=== PATIENT | male | born 1930 | race American Indian/Alaskan Native ===

== ENCOUNTER 2018-05-07 20:41 | Inpatient (IN) | payer OTHER ==
[2018-05-07 22:01] LABS: Absolute Lymphocytes (CBC) 0.1 K/uL (0.7-4.9); Absolute Monocytes 0.3 K/uL (0.1-1.3); Absolute Neutrophil 3.5 K/uL (1.8-8.0); Basophils % 0.1 % (0-1.3); Hematocrit 38.6 % (39.6-49.0); Lymphocytes % 2.7 % (15.3-44.8); MCH 31.4 pg (27.0-35.0); MCV 91.8 fL (80-100); MPV 7.8 fL (7.6-11.3); Monocytes % 8.6 % (3.3-12.3)
[2018-05-07] MEDS ORDERED: FAMOTIDINE 20 MG/2 ML VIAL IV ONE (22:08)
[2018-05-07] MEDS ORDERED: ACETAMINOPHEN 325 MG TABLET ONE (22:08)
[2018-05-07 22:15] LABS: Protime INR 1.15
[2018-05-07 22:29] LABS: ALT/SGPT 18 U/L (12-78); AST/SGOT 16 U/L (15-37); Albumin 3.3 g/dL (3.4-5.0); Alkaline Phosphatase 70 U/L (45-117); BUN Blood Urea Nitrogen 20 mg/dL (7-18); Bicarbonate 24 mmol/L (21-32); Bilirubin Direct 0.2 mg/dL (0-0.2); Bilirubin Total 0.6 mg/dL (0.2-1.0); Glucose Level 174 mg/dL (74-106); Lipase 153 U/L (73-393); Magnesium 1.8 mg/dL (1.8-2.4); NT PRO-BNP 126 pg/mL (<450); Sodium Level 136 mmol/L (136-145); Troponin (Emerg Dept Use Only) < 0.02 ng/mL (0.0-0.045)
[2018-05-07] MEDS ORDERED: METRONIDAZOLE 500mg IVPB 500 MG/100 ML BAG IV ONE (22:31)
[2018-05-07] MEDS ORDERED: CEFTRIAXONE/SWI 1gm 1 GM/10 ML SYR ONE (22:31)
[2018-05-07] MEDS ORDERED: NA CHLORIDE 0.9% 500 ML ONE (22:42)
--- NOTE | 2018-05-07 22:58 | EDPHYS ---
Physician Documentation [facility] Name: Gerard Rivas Age: 87 yrs Sex: Male : 1930 Arrival Date: 05/07/2018 Time: 20:50 Bed 18 Private MD: J Luis Mahmood ED Physician Lauri Castro HPI: 05/07 21:08 This 87 yrs old Other Male presents to ER via EMS with complaints of Fever. yousuf 21:08 The patient reports fever, that was measured at 100 degrees Fahrenheit. Onset: The yousuf symptoms/episode began/occurred 3 day(s) ago. Modifying factors: there are no obvious modifying factors. Associated signs and symptoms: Pertinent positives:. Severity of symptoms: At their worst the symptoms were. The patient has not experienced similar symptoms in the past. Historical: - Allergies: 21:04 Levaquin; fc - Home Meds: 21:04 metformin 500 mg Oral Tb24 1 tab 2 times per day [Active]; fc - PMHx: 21:04 Diabetes - NIDDM; High Cholesterol; fc - PSHx: 21:04 Appendectomy; TURP; fc - Immunization history:: Last tetanus immunization: unknown, Pneumococcal vaccine is up to date, Flu vaccine is up to date. - Social history:: Smoking status: Patient/guardian denies using tobacco, Patient/guardian denies using alcohol, street drugs. - Ebola Screening: : Patient negative for fever greater than or equal to 101.5 degrees Fahrenheit, and additional compatible Ebola Virus Disease symptoms Patient denies exposure to infectious person Patient denies travel to an Ebola-affected area in the 21 days before illness onset. - Family history:: not pertinent. ROS: 21:08 Eyes: Negative for injury, pain, redness, and discharge, ENT: Negative for injury, yousuf pain, and discharge, Neck: Negative for injury, pain, and swelling, Cardiovascular: Negative for chest pain, palpitations, and edema, Respiratory: Negative for shortness of breath, cough, wheezing, and pleuritic chest pain, Back: Negative for injury and pain, : Negative for injury, bleeding, discharge, and swelling, MS/Extremity: Negative for injury and deformity, Skin: Negative for injury, rash, and discoloration, Neuro: Negative for headache, weakness, numbness, tingling, and seizure, Psych: Negative for depression, anxiety, suicide ideation, homicidal ideation, and hallucinations, Allergy/Immunology: Negative for hives, rash, and allergies, Endocrine: Negative for neck swelling, polydipsia, polyuria, polyphagia, and marked weight changes, Hematologic/Lymphatic: Negative for swollen nodes, abnormal bleeding, and unusual bruising. 21:08 Constitutional: Positive for body aches, fever, malaise, poor PO intake. 21:08 Abdomen/GI: Positive for abdominal pain, abdominal cramps, abdominal distension, of the right lower quadrant and left lower quadrant. Exam: 21:08 Head/Face: Normocephalic, atraumatic. Eyes: Pupils equal round and reactive to light, yousuf extra-ocular motions intact. Lids and lashes normal. Conjunctiva and sclera are non-icteric and not injected. Cornea within normal limits. Periorbital areas with no swelling, redness, or edema. ENT: Nares patent. No nasal discharge, no septal abnormalities noted. Tympanic membranes are normal and external auditory canals are clear. Oropharynx with no redness, swelling, or masses, exudates, or evidence of obstruction, uvula midline. Mucous membranes moist. Neck: Trachea midline, no thyromegaly or masses palpated, and no cervical lymphadenopathy. Supple, full range of motion without nuchal rigidity, or vertebral point tenderness. No Meningismus. Chest/axilla: Normal chest wall appearance and motion. Nontender with no deformity. No lesions are appreciated. Cardiovascular: Regular rate and rhythm with a normal S1 and S2. No gallops, murmurs, or rubs. Normal PMI, no JVD. No pulse deficits. Respiratory: Lungs have equal breath sounds bilaterally, clear to auscultation and percussion. No rales, rhonchi or wheezes noted. No increased work of breathing, no retractions or nasal flaring. Back: No spinal tenderness. No costovertebral tenderness. Full range of motion. Male : Normal genitalia with no discharge or lesions. Skin: Warm, dry with normal turgor. Normal color with no rashes, no lesions, and no evidence of cellulitis. MS/ Extremity: Pulses equal, no cyanosis. Neurovascular intact. Full, normal range of motion. Neuro: Awake and alert, GCS 15, oriented to person, place, time, and situation. Cranial nerves II-XII grossly intact. Motor strength 5/5 in all extremities. Sensory grossly intact. Cerebellar exam normal. Normal gait. Psych: Awake, alert, with orientation to person, place and time. Behavior, mood, and affect are within normal limits. 21:08 Constitutional: The patient appears febrile. 21:08 Abdomen/GI: Inspection: abdomen appears normal, Bowel sounds: normal, Palpation: mild abdominal tenderness, moderate abdominal tenderness, in the right lower quadrant and left lower quadrant, Liver: no appreciated palpable abnormalities, Hernia: not appreciated. Vital Signs: 20:45 BP 87 / 58; Pulse 118; Resp 20; Temp 99.5(O); Pulse Ox 94% on R/A; Weight 72.57 kg (R); fc Height 5 ft. 8 in. (172.72 cm) (R); Pain 4/10; 22:09 BP 100 / 68; Pulse 100; Resp 16; Pulse Ox 95% on R/A; jb4 22:45 BP 78 / 58; Pulse 87; Resp 16; Temp 99.1(O); Pulse Ox 95% on R/A; jb4 23:55 BP 81 / 54; Pulse 89; Resp 16; Pulse Ox 96% on R/A; jb4 05/08 00:15 BP 93 / 57; Pulse 85; Resp 18; Pulse Ox 100% on R/A; jb4 05/07 20:45 Body Mass Index 24.33 (72.57 kg, 172.72 cm) fc MDM: 05/07 20:54 Patient medically screened. [facility] 21:10 Data reviewed: vital signs, nurses notes, lab test result(s), EKG, radiologic studies, [facility] CT scan, plain films. 05/07 21:07 Order name: Basic Metabolic Panel; Complete Time: 22:32 [facility] 05/07 21:07 Order name: CBC with Diff [facility] 05/07 21:07 Order name: LFT's; Complete Time: 22:32 [facility] 05/07 21:07 Order name: Magnesium; Complete Time: 22:32 [facility] 05/07 21:07 Order name: NT PRO-BNP; Complete Time: 22:32 [facility] 05/07 21:07 Order name: PT-INR; Complete Time: 22:32 [facility] 05/07 21:07 Order name: Troponin (emerg Dept Use Only); Complete Time: 22:32 [facility] 05/07 21:07 Order name: Lipase; Complete Time: 22:32 [facility] 05/07 21:07 Order name: Blood Culture Adult (2) [facility] 05/07 21:07 Order name: Urine Culture [facility] 05/07 21:07 Order name: Procalcitonin; Complete Time: 22:52 [facility] 05/07 21:07 Order name: Lactate; Complete Time: 22:32 [facility] 05/07 23:05 Order name: Basic Metabolic Panel [facility] 05/07 23:05 Order name: Basic Metabolic Panel [facility] 05/07 21:07 Order name: XRAY Chest (1 view) [facility] 05/07 21:11 Order name: CT Abd/Pelvis - W/Contrast [facility] 05/07 23:05 Order name: CBC with Automated Diff [facility] 05/07 23:05 Order name: CBC with Automated Diff [facility] 05/07 23:05 Order name: Lipase [facility] 05/07 23:05 Order name: Lipase [facility] 05/07 23:05 Order name: Liver (Hepatic) Function [facility] 05/07 23:05 Order name: Liver (Hepatic) Function [facility] 05/07 23:39 Order name: CBC Smear Scan [facility] 05/08 00:27 Order name: Urine Dipstick--Ancillary (enter results) [facility] 05/08 00:32 Order name: Urine Dipstick-Ancillary [facility] 05/07 21:07 Order name: EKG; Complete Time: 21:08 [facility] 05/07 21:07 Order name: Cardiac monitoring; Complete Time: 21:50 [facility] 05/07 21:07 Order name: EKG - Nurse/Tech; Complete Time: 21:50 [facility] 05/07 21:07 Order name: IV Saline Lock; Complete Time: 21:50 [facility] 05/07 21:07 Order name: Labs collected and sent; Complete Time: 21:50 [facility] 05/07 21:07 Order name: O2 Per Protocol; Complete Time: 21:50 [facility] 05/07 21:07 Order name: O2 Sat Monitoring; Complete Time: 21:50 [facility] 05/07 21:07 Order name: Urine Dipstick-Ancillary (obtain specimen); Complete Time: 00:27 [facility] 05/07 22:55 Order name: Coffman: annaus lido; Complete Time: 00:27 [facility] 05/07 22:55 Order name: IV Saline Lock - Large Bore; Complete Time: 23:29 [facility] 05/07 23:05 Order name: NPO EDMS Administered Medications: 21:10 Drug: NS 0.9% 1000 ml Route: IV; Rate: 1 bolus; Site: left hand; [facility] 21:50 Follow up: Response: No adverse reaction; IV Status: Completed infusion [facility] 22:08 Drug: Pepcid 20 mg Route: IVP; Site: left hand; [facility] 22:42 Follow up: Response: No adverse reaction [facility] 22:08 Drug: Tylenol 650 mg Route: PO; [facility] 22:43 Follow up: Response: No adverse reaction; Temperature is decreased [facility] 22:36 Drug: Rocephin - (cefTRIAXone) 1 grams Route: IVPB; Infused Over: 30 mins; Site: left [address]; 22:38 Follow up: Response: No adverse reaction; IV Status: Completed infusion; given IVP per [facility] pharmacy protocol 22:38 Drug: Flagyl 500 mg Volume: 100 ml; Route: IVPB; Rate: 200 ml/hr; Infused Over: 30 [facility] mins; Site: left hand; 23:03 Follow up: Response: No adverse reaction; IV Status: Completed infusion [facility] 22:40 Drug: NS 0.9% 500 ml Route: IV; Rate: bolus; Site: left hand; [facility] 23:10 Follow up: Response: No adverse reaction; IV Status: Completed infusion [facility] 23:15 Drug: NS 0.9% 1000 ml Route: IV; Rate: 1 bolus; Site: left hand; [facility] 05/08 00:50 Follow up: Response: No adverse reaction; IV Status: Infusion continued upon admission [facility] 05/07 23:15 Drug: vancoMYCIN 1 grams Route: IVPB; Infused Over: 2 hrs; Site: left hand; [facility] 05/08 00:50 Follow up: Response: No adverse reaction; IV Status: Infusion continued upon admission [facility] Disposition: 05/07/18 22:57 Hospitalization ordered by J Luis Mahmood for Inpatient Admission. Preliminary diagnosis are Fever, unspecified, Abdominal tenderness, Unspecified kidney failure, Hypotension, Dehydration. - Bed requested for Intensive Care Unit. - Status is Inpatient Admission. cc3 - Condition is Fair. - Problem is new. - Symptoms have improved. UTI on Admission? No Signatures: Dispatcher [employer] Shari Hernandes RN RN kl Anderson, Corey, MD MD [facility] Ligia, RN RN Theron Lehman RN RN jb4 Josy Rainey cc3 Corrections: (The following items were deleted from the chart) 05/07 22:58 22:57 Hospitalization Ordered by J Luis Mahmood MD for Inpatient Admission. Preliminary [facility] diagnosis is Fever, unspecified; Abdominal tenderness; Unspecified kidney failure. Bed requested for Intensive Care Unit. Status is Inpatient Admission. Condition is Fair. Problem is new. Symptoms have improved. UTI on Admission? No. [facility] 05/08 00:01 05/07 22:58 05/07/2018 22:57 Hospitalization Ordered by J Luis Mahmood MD for Inpatient kl Admission. Preliminary diagnosis is Fever, unspecified; Abdominal tenderness; Unspecified kidney failure; Hypotension; Dehydration. Bed requested for Intensive Care Unit. Status is Inpatient Admission. Condition is Fair. Problem is new. Symptoms have improved. UTI on Admission? No. [facility] 05/08 01:02 00:01 05/07/2018 22:57 Hospitalization Ordered by J Luis Mahmood MD for Inpatient cc3 Admission. Preliminary diagnosis is Fever, unspecified; Abdominal tenderness; Unspecified kidney failure; Hypotension; Dehydration. Bed requested for Intensive Care Unit. Status is Inpatient Admission. Condition is Fair. Problem is new. Symptoms have improved. UTI on Admission? No.
--- NOTE | 2018-05-07 22:58 | ER ---
Nurse's Notes [facility] Name: Gerard Rivas Age: 87 yrs Sex: Male : 1930 Arrival Date: 05/07/2018 Time: 20:50 Bed 18 Private MD: J Luis Mahmood Diagnosis: Fever, unspecified;Abdominal tenderness;Unspecified kidney failure;Hypotension;Dehydration Presentation: 05/07 20:45 Presenting complaint: EMS states: that pt was dx with diverticulitis by Dr Mahmood yesterday and given Cipro and Flagyl. Pt took them today and then 1 hr later started to having shakes, fever of 104 and nausea. Denies any vomiting or diarrhea. Family states that this pt did this the last time he was given Levaquin. Transition of care: patient was not received from another setting of care. Onset of symptoms was May 07, 2018. Risk Assessment: Do you want to hurt yourself or someone else? Patient reports no desire to harm self or others. Initial Sepsis Screen: Does the patient meet any 2 criteria? Systolic BP < 90 mmHg. HR > 90 bpm. Yes Does the patient have a suspected source of infection? No. Patient's initial sepsis screen is negative. Care prior to arrival: Medication(s) given: Motrin, 400 mg, per family at 1915 Normal saline infusion, 250 ml Tylenol, per family 500 mg given at 1845 IV initiated. 20 GA, in the left hand, HR 120 and temp of 101 and bp of 105/40 with sats of 95% on roomair. 20:45 Method Of Arrival: EMS: [facility] 20:45 Acuity: BEN 3 fc Historical: - Allergies: 21:04 Levaquin; fc - Home Meds: 21:04 metformin 500 mg Oral Tb24 1 tab 2 times per day [Active]; fc - PMHx: 21:04 Diabetes - NIDDM; High Cholesterol; fc - PSHx: 21:04 Appendectomy; TURP; fc - Immunization history:: Last tetanus immunization: unknown, Pneumococcal vaccine is up to date, Flu vaccine is up to date. - Social history:: Smoking status: Patient/guardian denies using tobacco, Patient/guardian denies using alcohol, street drugs. - Ebola Screening: : Patient negative for fever greater than or equal to 101.5 degrees Fahrenheit, and additional compatible Ebola Virus Disease symptoms Patient denies exposure to infectious person Patient denies travel to an Ebola-affected area in the 21 days before illness onset. - Family history:: not pertinent. Screenin:00 Abuse screen: Denies threats or abuse. Nutritional screening: No deficits noted. jb4 Tuberculosis screening: No symptoms or risk factors identified. Fall Risk Gait- Weak (10 pts.). Total Maxwell Fall Scale indicates No Risk (0-24 pts). Assessment: 21:00 General: Appears in no apparent distress. comfortable, Behavior is calm, cooperative, jb4 appropriate for age. Pain: Complains of pain in abdomen Pain does not radiate. Pain currently is 0 out of 10 on a pain scale. at worst was 10 out of 10 on a pain scale. Quality of pain is described as pressure. Neuro: Level of Consciousness is awake, alert, obeys commands, Oriented to person, place, time, situation. Cardiovascular: Heart tones S1 S2 present Patient's skin is warm and dry. Respiratory: Airway is patent Respiratory effort is even, unlabored, Respiratory pattern is regular, symmetrical, Breath sounds are clear bilaterally. GI: Abdomen is flat, non-distended, Bowel sounds present X 4 quads. Abd is soft and non tender X 4 quads. : No signs and/or symptoms were reported regarding the genitourinary system. EENT: No signs and/or symptoms were reported regarding the EENT system. Derm: Skin is intact, Skin is pink, warm \T\ dry. Musculoskeletal: Circulation, motion, and sensation intact. 22:09 Reassessment: Patient appears in no apparent distress at this time. Patient and/or jb4 family updated on plan of care and expected duration. Pain level reassessed. Patient is alert, oriented x 3, equal unlabored respirations, skin warm/dry/pink. 23:00 Reassessment: Patient appears in no apparent distress at this time. Patient and/or jb4 family updated on plan of care and expected duration. Pain level reassessed. Patient is alert, oriented x 3, equal unlabored respirations, skin warm/dry/pink. 05/08 00:26 Reassessment: Patient appears in no apparent distress at this time. Patient and/or jb4 family updated on plan of care and expected duration. Pain level reassessed. Patient is alert, oriented x 3, equal unlabored respirations, skin warm/dry/pink. Vital Signs: 05/07 20:45 BP 87 / 58; Pulse 118; Resp 20; Temp 99.5(O); Pulse Ox 94% on R/A; Weight 72.57 kg (R); fc Height 5 ft. 8 in. (172.72 cm) (R); Pain 4/10; 22:09 BP 100 / 68; Pulse 100; Resp 16; Pulse Ox 95% on R/A; jb4 22:45 BP 78 / 58; Pulse 87; Resp 16; Temp 99.1(O); Pulse Ox 95% on R/A; jb4 23:55 BP 81 / 54; Pulse 89; Resp 16; Pulse Ox 96% on R/A; jb4 05/08 00:15 BP 93 / 57; Pulse 85; Resp 18; Pulse Ox 100% on R/A; jb4 05/07 20:45 Body Mass Index 24.33 (72.57 kg, 172.72 cm) ED Course: 05/07 20:45 Arm band placed on Patient placed in an exam room, on a stretcher. fc 20:50 Patient arrived in ED. am2 20:50 J Luis Mahmood MD is Private Physician. am2 20:54 Lauri Castro MD is Attending Physician. yousuf 20:59 Theron Lehman, CYNTHIA is Primary Nurse. jb4 21:00 Patient has correct armband on for positive identification. Bed in low position. Call jb4 light in reach. Side rails up X 1. Pulse ox on. NIBP on. 21:02 Triage completed. fc 21:03 Maintain EMS IV. Dressing intact. Good blood return noted. Site clean \T\ dry. Gauge \T\ fc site: 20 gauge to left hand. 21:28 Oral contrast given. vm2 21:34 XRAY Chest (1 view) In Process Unspecified. EDMS 21:50 Oral contrast reported to be complete. vm2 22:56 J Luis Mahmood MD is Hospitalizing Provider. yousuf 23:28 Inserted saline lock: 20 gauge in left antecubital area, using aseptic technique. ds4 Missed attempt(s): 20 gauge in right antecubital area. Bleeding controlled, band aid applied, catheter tip intact. 23:[address] via wheelchair. kw1 23:45 CT Abd/Pelvis - W/Contrast In Process Unspecified. EDMS 23:47 CT completed. Patient tolerated procedure well. Patient moved back from CT. kw1 05/08 00:50 No provider procedures requiring assistance completed. Patient admitted, IV remains in jb4 place. Administered Medications: 05/07 21:10 Drug: NS 0.9% 1000 ml Route: IV; Rate: 1 bolus; Site: left hand; 4 21:50 Follow up: Response: No adverse reaction; IV Status: Completed infusion jb4 22:08 Drug: Pepcid 20 mg Route: IVP; Site: left hand; jb4 22:42 Follow up: Response: No adverse reaction jb4 22:08 Drug: Tylenol 650 mg Route: PO; jb4 22:43 Follow up: Response: No adverse reaction; Temperature is decreased 4 22:36 Drug: Rocephin - (cefTRIAXone) 1 grams Route: IVPB; Infused Over: 30 mins; Site: left [facility] hand; 22:38 Follow up: Response: No adverse reaction; IV Status: Completed infusion; given IVP per [facility] pharmacy protocol 22:38 Drug: Flagyl 500 mg Volume: 100 ml; Route: IVPB; Rate: 200 ml/hr; Infused Over: 30 jb4 mins; Site: left hand; 23:03 Follow up: Response: No adverse reaction; IV Status: Completed infusion [facility] 22:40 Drug: NS 0.9% 500 ml Route: IV; Rate: bolus; Site: left hand; jb4 23:10 Follow up: Response: No adverse reaction; IV Status: Completed infusion [facility] 23:15 Drug: NS 0.9% 1000 ml Route: IV; Rate: 1 bolus; Site: left hand; jb4 05/08 00:50 Follow up: Response: No adverse reaction; IV Status: Infusion continued upon admission [facility] 05/07 23:15 Drug: vancoMYCIN 1 grams Route: IVPB; Infused Over: 2 hrs; Site: left hand; [facility] 05/08 00:50 Follow up: Response: No adverse reaction; IV Status: Infusion continued upon admission [facility] Intake: Outcome: 05/07 22:57 Decision to Hospitalize by Provider. [facility] 05/08 00:50 Admitted to ICU accompanied by nurse, family with patient, via stretcher, room 6, on [facility] monitor, with chart, Report called to CYNTHIA Burnham Condition: stable Discharge instructions given to patient, family, Instructed on the need for admit, Demonstrated understanding of instructions. 01:02 Patient left the ED. cc3 Signatures: Dispatcher [employer] Lauri Leal MD MD cha Chretien, Felicia, RN RN fc Conner Serrano ds4 Theron Lehman RN RN jb4 Sravanthi Preston 2 Maxine Sommer 2 Shari Moreno 1 Josy Rainey cc3
[2018-05-07] MEDS ORDERED: ACETAMINOPHEN 500 MG TAB PO PRN (23:00)
[2018-05-07] MEDS ORDERED: ONDANSETRON 4 MG/2 ML VIAL IV PRN (23:00)
[2018-05-07] MEDS ORDERED: VANCOMYCIN 1 GM/250 ML BAG ONE (23:09)
[2018-05-07] MEDS ORDERED: NA CHLORIDE 0.9% 1,000 ML ONE (23:09)
[2018-05-07] MEDS ORDERED: LIDOCAINE VISCOUS 2% SOLN 15 ML UDC ONE (23:34)
[2018-05-07 23:39] LABS: Blood Morphology Comment NOT SEEN (NOT SEEN); Platelet Estimate ADEQ; Urine White Blood Cell Casts OK
[2018-05-08 00:31] LABS: Urine Blood TRACE (NEG); Urine Glucose NEGATIVE (NEG); Urine Protein NEGATIVE (NEG); Urine pH 5.5 (5.0-7.0)
[2018-05-08] MEDS: NA CHLORIDE 0.9% 1,000 ML IV SCH ×3 (01:11→14:58)
[2018-05-08 04:50] LABS: Absolute Lymphocytes (CBC) 0.2 K/uL (0.7-4.9); Absolute Monocytes 0.2 K/uL (0.1-1.3); Basophils % 0.3 % (0-1.3); Eosinophils % 0.2 % (0-4.4); Lymphocytes % 9.5 % (15.3-44.8); MCH 31.6 pg (27.0-35.0); MCV 91.8 fL (80-100); MPV 7.7 fL (7.6-11.3); Monocytes % 9.7 % (3.3-12.3)
[2018-05-08 05:00] LABS: Albumin 2.8 g/dL (3.4-5.0); Bilirubin Direct 0.2 mg/dL (0-0.2); Bilirubin Total 0.5 mg/dL (0.2-1.0); Potassium 4.4 mmol/L (3.5-5.1); Protein, Total 5.2 g/dL (6.4-8.2)
[2018-05-08] MEDS: METRONIDAZOLE 500mg IVPB 500 MG/100 ML BAG IV SCH ×3 (05:16→17:09)
--- NOTE | 2018-05-08 06:38 | RAD REPORT ---
EXAM DESCRIPTION: CT - Abdomen Pelvis W Contrast - 05/08/2018 4:11 am CLINICAL HISTORY: Abdominal pain, recent diverticulitis diagnosis A preliminary report was provided at the time of the study and reviewed prior to final report. COMPARISON: CT imaging September 2015 TECHNIQUE: Biphasic, helical CT imaging of the abdomen and pelvis was performed following 100 ml non -ionic IV contrast. Oral contrast was given. All CT scans are performed using dose optimization technique as appropriate and may include automated exposure control or mA/KV adjustment according to patient size. FINDINGS: No suspicious findings in the lung bases. Minimal hiatal hernia is present. No pericardial effusion. The liver, spleen, and pancreas show no focal findings. Liver shows a mild diffuse fatty infiltration pattern. Gallbladder and biliary tree show no suspicious findings. Symmetric renal function is seen with no hydronephrosis or suspicious renal mass. No pyelonephritis o r acute renal parenchymal process. Renal cysts are present largest cyst is in the medial mid right ki dney 2.9 cm in size. This has increased from 2.5 cm in 2016. No adrenal abnormality. No urinary bladd er abnormality seen. Prostate gland and seminal vesicles show no suspicious findings. No gastric dilatation or wall thickening. No dilated small bowel loops. Patient has a prominent sigmo id diverticulosis pattern but no wall thickening or inflammatory stranding. No measurable colitis or diverticulitis findings. There is minimal congestion in the mesenteric fat and a few small mesenteric lymph nodes. No free air, pneumatosis or focal inflammatory stranding. Small fat filled left inguinal hernia is present. No bulky lymphadenopathy or omental thickening. Bony degenerative changes are present. No pathologic bone process seen. 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 Patient has an infrarenal abdominal aortic aneurysm 4.6 cm AP x 4.1 cm TR. This has increased by 2 mm in each dimension from 2016. No acute aortic component. IMPRESSION: Extensive diverticulosis without diverticulitis or other acute colon finding. Minimal mesenteric congestion and small mesenteric lymph nodes. These are nonspecific but could indic ate a mild enteritis. Abdominal aortic aneurysm enlarged minimally from 2016. No acute component. Fatty infiltration of the liver.
[2018-05-08] MEDS: CEFTRIAXONE/SWI 1gm 1 GM/10 ML SYR IV SCH ×2 (08:18→20:07)
--- NOTE | 2018-05-08 08:29 | RAD REPORT ---
EXAM DESCRIPTION: RAD - Chest Single View - 05/07/2018 9:34 pm CLINICAL HISTORY: Abdominal pain, abdominal distention COMPARISON: March 2017 TECHNIQUE: AP portable chest image was obtained 2131 hours . FINDINGS: No focal consolidation or mass. Vasculature and interstitial markings are prominent. Patte rn is not substantially different when adjusting for AP versus PA technique. Trachea is midline. Hear t size is normal. No measurable pleural effusion and no pneumothorax. No acute bony abnormality seen. No acute aortic findings suspected. IMPRESSION: No focal mass or consolidation. Vasculature and lung markings are prominent without cardiomegaly. Mild failure/ volume overload is suspected and needs correlation with clinical presentation.
[2018-05-08] MEDS ORDERED: CEFTRIAXONE 1 GM/NS 50 ML 1 GM/50 ML BAG IV SCH (09:00)
[2018-05-08] MEDS ORDERED: FAMOTIDINE 20 MG/2 ML VIAL IV SCH (09:00)
[2018-05-08] MEDS ORDERED: GLUCAGON 1 MG/VIAL IM PRN (09:07)
[2018-05-08] MEDS ORDERED: D50W 25 GM/50 ML SYRINGE IV PRN (09:07)
[2018-05-08] MEDS: INSULIN -REGULAR HUMAN 50 UNIT/0.5 ML ML SQ SCH ×3 (11:30→20:08)
--- NOTE | 2018-05-08 12:19 | EKG ---
Test Date: 2018-05-07 Test Time: 21:39:38 Service Station Equipment Mechanic: CHLOE MEASUREMENT RESULTS: Intervals: Rate: 101 NV: 246 QRSD: 92 QT: 326 QTc: 422 [place]: P: 47 NV: 246 QRS: -19 T: 23 INTERPRETIVE STATEMENTS: Sinus tachycardia with 1st degree AV block Otherwise normal ECG Compared to ECG 08/29/2002 21:24:00 First degree AV block now present Electronically Signed On 05-08-18 12:17:56 TURBINE OPERATOR by Félix Wayne
[2018-05-08 15:17] LABS: Absolute Lymphocytes (CBC) 0.4 K/uL (0.7-4.9); Absolute Monocytes 0.3 K/uL (0.1-1.3); Basophils % 0.4 % (0-1.3); Eosinophils % 1.3 % (0-4.4); Hematocrit 34.7 % (39.6-49.0); Lymphocytes % 14.7 % (15.3-44.8); MCH 31.5 pg (27.0-35.0); MCV 91.9 fL (80-100); MPV 7.8 fL (7.6-11.3); Monocytes % 11.7 % (3.3-12.3); RBC Red Blood Cell Count 3.77 M/uL (4.33-5.43)
[2018-05-08 15:25] LABS: Albumin 2.9 g/dL (3.4-5.0); Bilirubin Direct 0.1 mg/dL (0-0.2); Bilirubin Total 0.3 mg/dL (0.2-1.0); Protein, Total 5.5 g/dL (6.4-8.2)
[2018-05-08] MEDS ORDERED: NA CHLORIDE 0.9% 1,000 ML IV SCH (18:00)
[2018-05-08] MEDS: ZOLPIDEM TARTRATE 5 MG TABLET PO SCH (22:35)
[2018-05-09] MEDS: METRONIDAZOLE 500mg IVPB 500 MG/100 ML BAG IV SCH ×2 (00:21→05:51)
[2018-05-09 04:32] LABS: Absolute Lymphocytes (CBC) 0.6 K/uL (0.7-4.9); Absolute Monocytes 0.6 K/uL (0.1-1.3); Basophils % 0.6 % (0-1.3); Eosinophils % 1.1 % (0-4.4); Hematocrit 37.3 % (39.6-49.0); Lymphocytes % 14.1 % (15.3-44.8); MCH 31.6 pg (27.0-35.0); MCV 91.7 fL (80-100); MPV 7.7 fL (7.6-11.3); Monocytes % 13.6 % (3.3-12.3); RBC Red Blood Cell Count 4.07 M/uL (4.33-5.43)
[2018-05-09 04:52] LABS: Potassium 3.8 mmol/L (3.5-5.1)
[2018-05-09 05:51] VITALS: BMI 25.7
[2018-05-09] MEDS: INSULIN -REGULAR HUMAN 50 UNIT/0.5 ML ML SQ SCH ×4 (07:30→21:00)
[2018-05-09 08:02] VITALS: O2SAT 96
[2018-05-09] MEDS: CEFTRIAXONE/SWI 1gm 1 GM/10 ML SYR IV SCH (08:15)
[2018-05-09] MEDS: FAMOTIDINE 20 MG TAB PO SCH (09:00)
[2018-05-09] MEDS ORDERED: FAMOTIDINE 20 MG/2 ML VIAL IV SCH (09:00)
[2018-05-09] MEDS: metroNIDAZOLE 500 MG TABLET PO SCH ×3 (09:29→21:35)
[2018-05-09] MEDS: METFORMIN ER 500 MG TAB PO SCH ×2 (09:29→17:13)
[2018-05-09] MEDS: CEPHALEXIN 500 MG CAP PO SCH ×4 (11:39→23:09)
[2018-05-09 16:46] LABS: Urine Appearance CLEAR; Urine Bilirubin NEGATIVE (NEG); Urine Blood 1+ (NEG); Urine Color YELLOW; Urine Glucose NEGATIVE (NEG); Urine Protein NEGATIVE (NEG); Urine Urobilinogen 0.2 mg/dL (0.2-1.0); Urine pH 6.5 (5.0-7.0)
[2018-05-09 16:51] LABS: Urine Microscopic Reflex ORDER UMIC
[2018-05-09 16:56] LABS: Urine Bacteria <20 /HPF (NONE SEEN); Urine Culture Reflex Order NOT NEEDED
[2018-05-09] MEDS: ZOLPIDEM TARTRATE 5 MG TABLET PO SCH (21:35)
--- NOTE | 2018-05-10 03:21 | PN ---
Date of Progress Note: 05/08/2018 This evening in ICU, the patient feels somewhat better. He required a Coffman catheter. He has a good output and states his appetite is coming back somewhat. He is now afebrile. His white blood count, however, dropped down to the 2400 level and now back up to 2900. He also had 1 episode of hypotensi on during his stay and he was bolused once again. Blood pressure is also rising. His lactic acid is back to normal. He will be kept overnight and probably be transferred to ICU in the morning. HR/MODL Voice ID: [id number] Report ID: [id number]
--- NOTE | 2018-05-10 03:26 | HP ---
Date of Admission: 05/07/2018 Chief Complaint: Abdominal pain, chills, fever. History Of Present Illness: The patient dates his symptoms back a couple weeks when he stated he fel t some fullness in the lower part of his abdomen. The patient has had bouts of acute diverticulitis necessitating IV antibiotics and hospitalization; however, he states this was not as bad, and he was afebrile so he just changed some of his diet somewhat. However, the day of admission, he became more uncomfortable and started on Cipro. Shortly, thereafter, it was described as a chill and temperatur e went up to 104, became quite weak and presented to the emergency room and was admitted for more int ensive care. Rather significant the patient had somewhat similar episode when he was on Levaquin kwame roximately a year ago for respiratory problem, and he developed some high fevers and chills shortly a fter taking this as well, so obviously and the patient is not compatible. 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 Social History: Nonsmoker. Occasional alcohol intake socially. Family History: Noncontributory. Physical Examination: General: The patient is orientated, well-built elderly male. Vital Signs: With stable vital signs other than temperature was 103.6. Head and Neck: Normocephalic. Pupils equal, react to light and accommodation. Fundi negative. Tra myriam midline. Thyroid not palpable. ENT: Negative. Chest: Clear to P and A. Cardiovascular: PMI in midclavicular line. Heart: Sounds normal. Peripheral pulses present and equal bilaterally. Abdomen: Tenderness in the lower abdomen, left more pronounced than the right. Questionable rebound tenderness on the left. No guarding or rigidity. Bowel sounds normal. Extremities: Moderately dehydrated. Good tone and movement. Bilateral reflexes physiologic. Rectal: Deferred. Impression: Acute diverticulitis. Plan: The patient will be admitted, placed on IV antibiotics, IV fluids. Note that while he was in the hospital, he was markedly hypotensive and positive septic signs other than the white count, which was normal, required boluses of 2500 cc to maintain blood pressure, which was still low when he was sent to the ICU. HR/MODL Voice ID: [id number]
--- NOTE | 2018-05-10 03:27 | PN ---
Date of Progress Note: 05/09/2018 The patient is now moved to floor care. He is tolerating his diet, fluids without any problems. Gilberto etite has increased somewhat. Still has minimal amount of tenderness in the lower abdomen. We will change to p.o. medication and maintain his saline lock. He is urinating without a problem and if he continued this way, he should be able to be discharged in a.m. HR/MODL Voice ID: [id number] Report ID: [id number]
[2018-05-10 04:13] LABS: Absolute Lymphocytes (CBC) 0.7 K/uL (0.7-4.9); Absolute Monocytes 0.6 K/uL (0.1-1.3); Absolute Neutrophil 2.4 K/uL (1.8-8.0); Basophils % 0.3 % (0-1.3); Lymphocytes % 18.5 % (15.3-44.8); MCH 31.3 pg (27.0-35.0); MCV 92.1 fL (80-100); MPV 7.9 fL (7.6-11.3); Monocytes % 15.1 % (3.3-12.3); RBC Red Blood Cell Count 4.02 M/uL (4.33-5.43)
[2018-05-10 05:14] LABS: Potassium 3.7 mmol/L (3.5-5.1)
[2018-05-10 05:44] LABS: Blood Morphology Comment NOT SEEN (NOT SEEN); Platelet Estimate ADEQ; Polychromasia 1+
[2018-05-10] MEDS: CEPHALEXIN 500 MG CAP PO SCH ×2 (06:34→11:11)
[2018-05-10] MEDS: INSULIN -REGULAR HUMAN 50 UNIT/0.5 ML ML SQ SCH ×2 (07:30→11:30)
[2018-05-10] MEDS: METFORMIN ER 500 MG TAB PO SCH (08:12)
[2018-05-10] MEDS: metroNIDAZOLE 500 MG TABLET PO SCH (11:11)
[2018-05-10] MEDS: FAMOTIDINE 20 MG TAB PO SCH (11:11)
[2018-05-10 12:36] VITALS: BP 101/65; TEMP 98
--- NOTE | 2018-05-11 02:55 | PN ---
Date of Progress Note: 05/10/2018 The patient continues to improve. He is eating, although his appetite, he says, is still not what it should be. Drinking plenty. Having no problems urinating. Stool is still slightly loose. Physica l exam revealed minimal tenderness in the right lower quadrant, still some tenderness in the left. N o rebound. [place] patient could be discharged. Continue on antibiotics p.o. in the form of Flagyl and Keflex. Zofran on a p.r.n. basis and continue his usual home medications. Follow up with me in [facility] PINEDA/RANJANA Voice ID: [id number] Report ID: [id number]
== END 2018-05-10 14:16 | disposition home or self-care (01) | DRG 392 ==
LOC: ER 20:41 → ERHOLD 23:45 → 3RD-ICU 05-08 00:37 → 4TH 05-09 10:10
PROVIDERS: ADMIT Family Medicine; ATTEND Family Medicine
DX: K57.92 Diverticulitis of intestine, part unspecified, without perforation or abscess without bleeding (principal); I95.9 Hypotension, unspecified; E11.9 Type 2 diabetes mellitus without complications; Z79.84 Long term (current) use of oral hypoglycemic drugs
CPT/HCPCS: 36415; 71045; 74177; 80048; 80076; 81003; 81015; 82150; 82274; 82962; 83605; 83690; 83735; 83880; 84145; 84484; 85025; 85610; 87040; 87086; 87088; 87804; 93005; 96361; 96365; 96367; 96375; 99285; J0696; J3370; J7030; Q9967

== ENCOUNTER 2019-03-13 07:58 | Day surgery (SDC) | payer OTHER ==
--- NOTE | 2019-03-12 16:20 | RAD REPORT ---
EXAM DESCRIPTION: Michel Dunaway (2 Views)03/12/2019 4:08 pm CLINICAL HISTORY: Preop for mass removal from buttock COMPARISON: 2017 FINDINGS: The lungs appear clear of acute infiltrate. The heart is normal size The ascending thoracic aorta is ectatic but without obvious change from the prior exam. The diameter is difficult to determine secondary to overlying soft tissue but appears to be approximately 4.8 to 5 centimeters
[2019-03-12 16:39] LABS: Absolute Lymphocytes (CBC) 0.8 K/uL (0.7-4.9); Basophils % 0.4 % (0-1.3); Hematocrit 38.7 % (39.6-49.0); Lymphocytes % 18.7 % (15.3-44.8); MPV 8.1 fL (7.6-11.3); RBC Red Blood Cell Count 4.19 M/uL (4.33-5.43)
[2019-03-12 16:43] LABS: Potassium 4.4 mmol/L (3.5-5.1)
[~2019-03-13 07:58] MED LIST: FENTANYL CITR 100 MCG/2 ML ONE; LIDOCAINE 1% MPF 5 ML VIAL ONE; ONDANSETRON 4 MG/2 ML VIAL ONE; PROPOFOL 200 MG/20 ML VIAL IV ONE; ROCURONIUM 50 MG/5 ML VIAL IV ONE
[2019-03-13] MEDS ORDERED: NA CHLORIDE 0.9% 1,000 ML ONE (08:16)
[2019-03-13] MEDS ORDERED: CEFAZOLIN/SWI 1gm 1 GM/10 ML SYR ONE (08:16)
[2019-03-13] MEDS ORDERED: MIDAZOLAM HCL 2 MG/2 ML INJ ONE (08:23)
[2019-03-13 10:51] VITALS: BP 123/81; TEMP 98.2; O2SAT 98
--- NOTE | 2019-03-13 15:58 | EKG ---
Test Date: 2019-03-12 Test Time: 15:42:40 Ingredient Scaler: HELADIO MEASUREMENT RESULTS: Intervals: Rate: 82 ME: 252 QRSD: 88 QT: 364 QTc: 425 [place]: P: 58 ME: 252 QRS: -4 T: 47 INTERPRETIVE STATEMENTS: Sinus rhythm with 1st degree AV block Otherwise normal ECG Compared to ECG 05/07/2018 21:39:38 Sinus tachycardia no longer present Electronically Signed On 03-13-19 15:54:40 CDT by Félix Wayne
--- NOTE | 2019-03-13 20:32 | OP ---
Date of Procedure: 03/13/2019 Surgeon: Jadiel Parham MD Preoperative Diagnosis: Right buttock abscess and cellulitis. Postoperative Diagnosis: Right buttock abscess and cellulitis. Procedure Performed: Incision and drainage and debridement of right buttock abscess. Surgeon: Jadiel Parham M.D. Estimated Blood Loss: Minimal. Specimen: Pus. Findings: Above. Anesthesia: General. Complications: None. Disposition: The patient tolerated the procedure in stable condition, taken to Recovery in good gene ral condition. Procedure In Detail: The patient was brought to the OR and placed in supine position. General anest hesia was begun and patient was placed in left lateral position, prepped and draped in the usual ster ile fashion. Marcaine 0.5% was infiltrated locally. A 15-blade was used to make a 3.5 cm transverse incision over the fluctuant part of the abscess and deep to the subcutaneous tissue. Large amount o f purulent material evacuated. Cultures done. Wound irrigated. Bleeding controlled with cautery. Necrotic tissue debrided. Bleeding controlled with cautery. Then, wound irrigated again and there w as no bleeding. Curette was used to debride some more and then wet-to-dry normal saline dressing yousuf nge applied. The patient tolerated the procedure in stable condition, taken to Recovery in good gene [facility] condition. Discharge Note: Patient will go to day surgery and home when stable. Disposition: Home. Condition: Stable. Discharge Instructions: Resume home medications and diet. Activity as tolerated. No heavy lifting. Remove outer dressing in a.m., wet-to-dry normal saline dressing changes daily. Patient has home h ealth. Tylenol No.3 one tablet p.o. q.4 p.r.n. pain. Follow up in my office in 2 weeks, call for ap pointment and patient has antibiotics, Keflex right now and we will adjust the antibiotics after the cultures come back. /MODL Voice ID: [id number] Report ID: [id number]
== END 2019-03-13 10:58 | disposition home or self-care (01) ==
LOC: OR 07:58
PROVIDERS: ATTEND Surgery
PROC: 0J990ZZ Drainage of Buttock Subcutaneous Tissue and Fascia, Open Approach (ICD-10-PCS; principal; 2019-03-13 09:00)
DX: L02.31 Cutaneous abscess of buttock (principal); L03.317 Cellulitis of buttock; E11.9 Type 2 diabetes mellitus without complications; G47.33 Obstructive sleep apnea (adult) (pediatric); K21.9 Gastro-esophageal reflux disease without esophagitis; Z88.3 Allergy status to other anti-infective agents
CPT/HCPCS: 93005; 87070; 85025; 80048; 36415; 87205; 82962 ×2; 87075; 87077; 87186; 71046; 10060; J2704; J2250; J3010; J0690; J7030; J2405